=== PATIENT | male | born 1955 | race Caucasian/White ===

== ENCOUNTER 2018-10-07 12:24 | Emergency (ER) | payer OTHER ==
[2018-10-07] MEDS ORDERED: LIDOCAINE 1% MPF 5 ML VIAL ONE (13:02)
--- NOTE | 2018-10-07 14:33 | ER ---
Nurse's Notes [facility] Name: Armando Gonzales Age: 63 yrs Sex: Male : 1955 Arrival Date: 10/07/2018 Time: 12:29 Bed 9 Private MD: Diagnosis: Ingrowing nail Presentation: 10/07 12:47 Presenting complaint: Patient states: ingrown toenail for a few days, left great toe. iw Transition of care: patient was not received from another setting of care. Onset of symptoms was October 04, 2018. Risk Assessment: Do you want to hurt yourself or someone else? Patient reports no desire to harm self or others. Initial Sepsis Screen: Does the patient meet any 2 criteria? No. Patient's initial sepsis screen is negative. Does the patient have a suspected source of infection? No. Patient's initial sepsis screen is negative. Care prior to arrival: None. 12:47 Method Of Arrival: Ambulatory iw 12:47 Acuity: HOWARD 4 iw Historical: - Allergies: 12:50 Hydrocodone-Acetaminophen; iw 12:50 Percocet; iw - Home Meds: 12:50 Hydrochlorothiazide Oral [Active]; iw - PMHx: 12:50 Hypertension; prostate cancer; iw - PSHx: 12:50 prostate; Hernia repair; iw - Immunization history:: Adult Immunizations up to date. - Social history:: Smoking status: Patient/guardian denies using tobacco. - Ebola Screening: : Patient negative for fever greater than or equal to 101.5 degrees Fahrenheit, and additional compatible Ebola Virus Disease symptoms Patient denies exposure to infectious person Patient denies travel to an Ebola-affected area in the 21 days before illness onset No symptoms or risks identified at this time. Screenin:52 Abuse screen: Denies threats or abuse. Denies injuries from another. Nutritional iw screening: No deficits noted. Tuberculosis screening: No symptoms or risk factors identified. Fall Risk None identified. Assessment: 12:51 General: Appears in no apparent distress. Behavior is calm, cooperative. Pain: iw Complains of pain in Left first toenail. Neuro: Level of Consciousness is awake, alert, obeys commands, Oriented to person, place, time, situation, Moves all extremities. Full function. Respiratory: Respiratory effort is even, unlabored. Derm: Skin is intact, is healthy with good turgor. Musculoskeletal: Range of motion: intact in all extremities. Vital Signs: 12:50 BP 130 / 84; Pulse 81; Resp 16; Temp 98.2; Pulse Ox 99% on R/A; Weight 90.72 kg; Height iw 5 ft. 10 in. (177.80 cm); Pain 8/10; 12:50 Body Mass Index 28.70 (90.72 kg, 177.80 cm) iw ED Course: 12:29 Patient arrived in ED. mr 12:49 Triage completed. iw 12:50 Arm band placed on. iw 12:51 Avis Baez, RN is Primary Nurse. iw 12:52 Melissa Tavarez FNP-C is PHCP. kb 12:52 Kobe Valdivia MD is Attending Physician. kb 12:55 Patient has correct armband on for positive identification. iw 14:20 Assist provider with foreign body removal Assist provider with nail repair of ingrown iw nail of left great toe using excision of nail. Set up for procedure. Performed by Kobe Valdivia MD Dressed with 4X4s, Patient tolerated well. Patient did not have IV access during this emergency room visit. Administered Medications: 14:10 Drug: Lidocaine (1 %) 1 vials Volume: 5 ml; Route: Infiltration; iw 14:10 Drug: Marcaine (0.5 %) 1 vials Volume: 10 ml; Route: Infiltration; iw Outcome: 14:32 Discharge ordered by . kb 14:54 Discharged to home ambulatory. iw 14:54 Condition: good 14:54 Discharge instructions given to patient, Instructed on discharge instructions, follow up and referral plans. medication usage, Demonstrated understanding of instructions, follow-up care, medications, Prescriptions given X 1. 14:55 Patient left the ED. iw Signatures: Melissa Tavarez FNP-C FNP-Yola Gretchen Cullen mr Avis Baez, RN RN iw
--- NOTE | 2018-10-07 14:33 | EDPHYS ---
Physician Documentation [facility] Name: Armando Gonzales Age: 63 yrs Sex: Male : 1955 Arrival Date: 10/07/2018 Time: 12:29 Bed 9 Private MD: ED Physician Kobe Valdivia HPI: 10/07 14:22 This 63 yrs old Male presents to ER via Ambulatory with complaints of Ingrown kb toe nail. 14:23 The patient presents with pain, that is acute, swelling, tenderness. The complaints kb affect the left foot. Onset: The symptoms/episode began/occurred 1 week(s) ago. Modifying factors: The symptoms are alleviated by nothing, the symptoms are aggravated by nothing. Associated signs and symptoms: Pertinent positives: swelling, Pertinent negatives: calf tenderness, fever, nausea, numbness, rash, tingling, vomiting, warmth, weakness. Severity of symptoms: At their worst the symptoms were moderate, in the emergency department the symptoms are unchanged. The patient has not experienced similar symptoms in the past. The patient has not recently seen a physician. Pt reports ingrown toenail for a week. Historical: - Allergies: 12:50 Hydrocodone-Acetaminophen; iw 12:50 Percocet; iw - Home Meds: 12:50 Hydrochlorothiazide Oral [Active]; iw - PMHx: 12:50 Hypertension; prostate cancer; iw - PSHx: 12:50 prostate; Hernia repair; iw - Immunization history:: Adult Immunizations up to date. - Social history:: Smoking status: Patient/guardian denies using tobacco. - Ebola Screening: : Patient negative for fever greater than or equal to 101.5 degrees Fahrenheit, and additional compatible Ebola Virus Disease symptoms Patient denies exposure to infectious person Patient denies travel to an Ebola-affected area in the 21 days before illness onset No symptoms or risks identified at this time. ROS: 13:57 Constitutional: Negative for fever, chills, and weight loss, Cardiovascular: Negative kb for chest pain, palpitations, and edema, Respiratory: Negative for shortness of breath, cough, wheezing, and pleuritic chest pain, Abdomen/GI: Negative for abdominal pain, nausea, vomiting, diarrhea, and constipation, Skin: Negative for injury, rash, and discoloration, Neuro: Negative for headache, weakness, numbness, tingling, and seizure. 13:57 MS/extremity: Positive for pain, ingrown nail. Exam: 13:57 Constitutional: This is a well developed, well nourished patient who is awake, alert, kb and in no acute distress. Head/Face: Normocephalic, atraumatic. Chest/axilla: Normal chest wall appearance and motion. Nontender with no deformity. No lesions are appreciated. Cardiovascular: Regular rate and rhythm with a normal S1 and S2. No gallops, murmurs, or rubs. Normal PMI, no JVD. No pulse deficits. Respiratory: Lungs have equal breath sounds bilaterally, clear to auscultation and percussion. No rales, rhonchi or wheezes noted. No increased work of breathing, no retractions or nasal flaring. Abdomen/GI: Soft, non-tender, with normal bowel sounds. No distension or tympany. No guarding or rebound. No evidence of tenderness throughout. Neuro: Awake and alert, GCS 15, oriented to person, place, time, and situation. Cranial nerves II-XII grossly intact. Motor strength 5/5 in all extremities. Sensory grossly intact. Cerebellar exam normal. Normal gait. 13:57 Musculoskeletal/extremity: Nails: ingrown nail to left great toe. Vital Signs: 12:50 BP 130 / 84; Pulse 81; Resp 16; Temp 98.2; Pulse Ox 99% on R/A; Weight 90.72 kg; Height iw 5 ft. 10 in. (177.80 cm); Pain 8/10; 12:50 Body Mass Index 28.70 (90.72 kg, 177.80 cm) iw Procedures: 13:56 Nerve block: (digital) of left first toe Medication: Lidocaine 1% with epinephrine, kb Marcaine 0.5%, Amount: 4 mls were injected, Effect: the patient has resolution of the pain, Set up for procedure. Performed by Melissa TREJO Patient tolerated well. MDM: 12:52 Patient medically screened. kb 13:57 Data reviewed: vital signs, nurses notes. Data interpreted: Pulse oximetry: on room air kb is 99 %. Interpretation: normal. 14:23 Counseling: I had a detailed discussion with the patient and/or guardian regarding: the kb historical points, exam findings, and any diagnostic results supporting the discharge/admit diagnosis, the need for outpatient follow up, a family practitioner, to return to the emergency department if symptoms worsen or persist or if there are any questions or concerns that arise at home. 14:32 ED course: removed part of nail that was ingrown. kb Administered Medications: 14:10 Drug: Lidocaine (1 %) 1 vials Volume: 5 ml; Route: Infiltration; iw 14:10 Drug: Marcaine (0.5 %) 1 vials Volume: 10 ml; Route: Infiltration; iw Disposition: 15:40 Co-signature as Attending Physician, Kobe Valdivia MD. rn Disposition: 10/07/18 14:32 Discharged to Home. Impression: Ingrowing nail. - Condition is Stable. - Discharge Instructions: Ingrown Toenail. - Prescriptions for Keflex 500 mg Oral Capsule - take 1 capsule by ORAL route every 8 hours for 10 days; 30 capsule. - Medication Reconciliation Form, Thank You Letter, Antibiotic Education, Prescription Opioid Use form. - Follow up: Emergency Department; When: As needed; Reason: Worsening of condition. Follow up: Private Physician; When: 2 - 3 days; Reason: Recheck today's complaints, Continuance of care, Re-evaluation by your physician. Signatures: Melissa Tavarez, EPIC CUPID ANALYST-C EPIC CUPID ANALYST-Ckb Avis Baez RN RN iw Kobe Valdivia MD MD t rail turner: (The following items were deleted from the chart) 14:55 14:32 10/07/2018 14:32 Discharged to Home. Impression: Ingrowing nail. Condition is iw Stable. Forms are Medication Reconciliation Form, Thank You Letter, Antibiotic Education, Prescription Opioid Use. Follow up: Emergency Department; When: As needed; Reason: Worsening of condition. Follow up: Private Physician; When: 2 - 3 days; Reason: Recheck today's complaints, Continuance of care, Re-evaluation by your physician. kb
== END 2018-10-07 14:55 | disposition home or self-care (01) ==
LOC: ER 12:24
PROC: 0HBRXZZ Excision of Toe Nail, External Approach (ICD-10-PCS; principal; 2018-10-07)
DX: L60.0 Ingrowing nail (principal); I10 Essential (primary) hypertension; Z85.46 Personal history of malignant neoplasm of prostate; Z88.5 Allergy status to narcotic agent
CPT/HCPCS: 64450; 99284